=== PATIENT | female | born 1945 | race African-American/Black ===

== ENCOUNTER → 2016-06-26 | Outpatient (CLI) | payer OTHER ==
--- NOTE | ~2016-06-26 | MY11 ---
[facility] A Service of [facility] RADIOLOGY TEXT RESULTS PATIENT: SHIKHA MICHELLE LOCATION: [facility] : 49 UNIT #: [id number] AGE: [address]: Ronny Helms MD SEX: F ORDER DR: [id number] [facility] [address] [place], [place] [address] [id number] O MR#: [id number] Acc #: [id number] NAME: SHIKHA MICHELLE : 1945 SEX: F STUDY DATE/TIME: 06/26/2016 9:43 UNIT: [facility] ROOM: STUDY DESCRIPTION: MY Mammogram Screening Dig Demario Attending Physician: Ronny Helms M.D. Referring Physician: Ronny Helms M.D. Ordering Physician: Ronny Helms M.D. Primary Care Physician: Ronny Helms M.D. MEDICAL IMAGING REPORT This report is preliminary unless electronic signature is present EXAM Bilateral digital screening mammogram with CAD 06/26/2016 INDICATIONS 71-year female for routine screening. No reported problems. No personal history of breast cancer. Family history positive in a grandmother and a first cousin. No surgeries. TECHNIQUE CC and MLO views were obtained and reviewed with an approved CAD device. COMPARISON 06/25/2015 06/20/2014 06/06/2013 FINDINGS Breast parenchyma is composed of scattered fibroglandular densities and the pattern is unchanged. There is no new dominant nodule or mass in either breast. No new suspicious cluster of microcalcifications. Benign appearing axillary nodes present. IMPRESSION Negative screening mammogram. One year followup recommended. Patients over the age of 40 are entered into a reminder system with target due date for the next mammogram. A result letter will also be sent to the patient. BIRADS: 1 Negative. Dictated by... Jacky Zambrano M.D. THIS IS AN ELECTRONICALLY VERIFIED REPORT Jacky Zambrano M.D. at 06/26/2016 4:[address] [facility] A Service of [facility] RADIOLOGY TEXT RESULTS PATIENT: SHIKHA MICHELLE LOCATION: [facility] : 49 UNIT #: [id number] AGE: [address]: Ronny Helms MD SEX: F ORDER DR: ROMA/candie TD: 06/26/2016 12:53 JOB #: [id number] MEDICAL IMAGING REPORT Page 1 of 1 COPY
== END | disposition home or self-care (01) ==
LOC: CWCC 09:15
DX: Z12.31 Encounter for screening mammogram for malignant neoplasm of breast (principal); Z80.3 Family history of malignant neoplasm of breast
CPT/HCPCS: G0202